=== PATIENT | female | born 2000 | race Asian ===

== ENCOUNTER 2022-10-04 20:01 | Outpatient (CLI) | payer BC, SELFPAY | END 2022-10-04 20:02 | disposition home or self-care (01) | LOC: AMB 10-16 14:48 | PROVIDERS: Visit Provider Family Medicine | DX: T78.40XA Allergy, unspecified, initial encounter (principal) | CPT/HCPCS: A0998 ==

== ENCOUNTER 2023-01-08 00:40 | Outpatient (CLI) | payer BC, SELFPAY | END 2023-01-08 00:41 | disposition home or self-care (01) | PROVIDERS: Visit Provider Family Medicine | DX: T78.40XA Allergy, unspecified, initial encounter (principal) | CPT/HCPCS: A0998 ==